=== PATIENT | female | born 1980 | race Caucasian/White ===

== ENCOUNTER 2021-01-12 09:03 | Emergency (ER) | payer MEDICAID ==
[~2021-01-12] VITALS: Ht 162.6 cm; Wt 74.5 kg
[2021-01-12] MEDS ORDERED: DIAZ5TAB22 PO (09:42)
[2021-01-12 09:55] VITALS: BP 127/90
== END 2021-01-12 09:57 | disposition home or self-care (01) ==
LOC: ER 09:03
DX: M62.830 Muscle spasm of back (principal); E78.00 Pure hypercholesterolemia, unspecified; Z79.899 Other long term (current) drug therapy; X50.0XXA Overexertion from strenuous movement or load, initial encounter; Y93.89 Activity, other specified; Y92.89 Other specified places as the place of occurrence of the external cause; Y99.8 Other external cause status
CPT/HCPCS: 99283

== ENCOUNTER 2022-08-08 06:57 | Outpatient (CLI) | payer BC, MEDICAID | END 2022-08-08 23:59 | disposition home or self-care (01) | LOC: RT 06:57 | PROVIDERS: ATTEND Nurse Practitioner Family | DX: R05.9 Cough, unspecified (principal) | CPT/HCPCS: 94010 ==